=== PATIENT | female | born 1960 | race Caucasian/White ===

== ENCOUNTER → 2020-11-18 | Outpatient (CLI) | payer BC ==
--- NOTE | 2020-11-18 15:40 | REP ---
INDICATION: PAIN COMPARISON: None. TECHNIQUE: AP, lateral, bilateral oblique views right wrist. FINDINGS: Soft tissue swelling is appreciated. Osseous structures and joint spaces demonstrate age-related changes. No obvious acute fracture or dislocation. No subcutaneous emphysema or foreign body. IMPRESSION: Swelling and degenerative changes. No obvious acute fracture or dislocation. <Electronically signed by Sebastián Vaz > 11/18/20 1533
== END ==
LOC: M WUC 15:21
PROVIDERS: ATTEND Physician Assistant
DX: M25.531 Pain in right wrist (principal)